=== PATIENT | male | born 1995 | race Caucasian/White ===

== ENCOUNTER 2017-02-12 11:50 | Emergency (ER) | payer BC, OTHER ==
[~2017-02-12] VITALS: Ht 170.2 cm; Wt 97.0 kg
[~2017-02-12 11:50] MED LIST: AMOX-351 PO; NO DAILY MEDS
--- OUTSIDE RECORDS SUMMARY | 2017-02-12 11:53 | XMS REPORT | Continuity of Care Document ---
Author Author [facility] Organization [facility] Address Unknown Phone Unavailable Support Name Relationship Address Phone DANIEL GREEN MD Caregiver [address] [place] [address] [place] [address] Unavailable SARAH RIOS Next Of Kin [address] [place] [address] [place] [address] Insurance Providers Guarantor Daniel Rios Address [address] [place] [address] [place] [address] Email DENIED Payer [facility] Policy Number [id number] Subscriber's Name Daniel Rios Relationship 18 Self Group Number [id number] Advance Directives Directive Response Recorded Date/Time Advanced Directives Type None 04/25/16 10:05pm Chief Complaint and Reason for Visit Chief Complaint Nausea,Vomiting,Diarrhea Reason for Visit Viral gastroenteritis Problems Active Problems Medical Problem Onset Date Status Acute sinusitis Unknown Acute Acute sinusitis Unknown Acute LEFT KNEE PAIN Unknown Acute Urticaria of unknown origin Unknown Acute Urticaria of unknown origin Unknown Acute Past Problems Medical Problem Onset Date Viral gastroenteritis Unknown Medications Current Home Medications Medication Dose Units Route Directions Days Qty Instructions Start Date No Daily Meds 04/25/16 Prochlorperazine Maleate (Compazine) 10 Mg Tablet 10 Mg Oral Four Times Daily 30 Tablet 04/25/16 Past Home Medications Medication Directions Ordered Status Allergy Pill , 09/07/09 Discontinued Aspirin (Baby Aspirin) 81 Mg Tab.chew, 81 Mg Oral Daily 04/20/10 Discontinued Decongestant , 09/07/09 Discontinued Fluticasone Propionate (Flonase) 16 Gm [place].susp, 16 Gm Nasal As Needed 10/07 Discontinued Loratadine (Claritin) 10 Mg Tablet, 10 Mg Oral Bedtime 04/19/10 Discontinued None , 04/23/13 Discontinued Sulfamethoxazole/Trimethoprim (Bactrim Ds) 1 Tab Tablet, 1 Tab Oral Twice A Day 07/31/10 Discontinued Social History Social History Problem Response Recorded Date/Time Onset Date Status Chewing Tobacco Status No 04/23/2013 12:10pm Not Applicable Not Applicable Hx Substance Use No 04/25/2016 10:15pm Not Applicable Not Applicable Hx Alcohol Use Y SOCAIL 04/25/2016 10:15pm Not Applicable Not Applicable Has the pt used tobacco in the last 12 months No 04/23/2013 12:10pm Not Applicable Not Applicable Tobacco Usage smoke 09/13/2014 4:28pm Not Applicable Not Applicable Query Response Start Date Stop Date Smoking Status Current some day smoker Hospital Discharge Instructions No hospital discharge instructions. Plan of Care Discharge Date 04/25/16 11:06pm Disposition 01 DISCHARGED HOME, SELF-CARE Condition at Discharge Improved Instructions/Education Provided DI for Viral Gastroenteritis -- Adult Prescriptions See Medication Section Additional Instructions/Education Compazine 10mg four times daily as needed for nausea or abdominal pain. Imodium at home 1-2 tabs up to 4 times daily as needed for watery stools Drink LOTS of fluids to keep up with diarrhea. Return to ER or see your doctor if not improved in two days or if worse. Care Plan and Goals Physician Care Plan Problem: Viral Gastroenteriritis Goal: Follow up with primary care provider Instructions: Take medications and follow care plan as discussed/written Compazine 10mg four times daily as needed for nausea or abdominal pain. Imodium at home 1-2 tabs up to 4 times daily as needed for watery stools Drink LOTS of fluids to keep up with diarrhea. Return to ER or see your doctor if not improved in two days or if worse. Functional Status No functional status results. Allergies, Adverse Reactions, Alerts Allergen Type Severity Reaction Status Last Updated Grape. Allergy Intermediate hives Active 04/25/16 pseudoephedrine HCl Allergy Unknown Active 04/25/16 Guaifenesin Allergy Unknown Active 04/25/16 Immunizations Query Response on File Recorded Date/Time Hx Influenza Vaccination Y fall 201101/29/15 8:44am Hx Pneumococcal Vaccination No 01/29/15 8:44am Hx Tetanus, Diptheria, Pertussis N/A SKIN INTACT 01/29/15 8:44am Hx Influenza Vaccination Y fall 201101/29/15 8:44am Hx Tetanus, Diptheria, Pertussis N/A SKIN INTACT 01/29/15 8:44am Influenza Vaccine Hx NONE 04/25/16 10:15pm Vital Signs Acute Vital Signs Vital Response Date/Time Temperature (Fahrenheit) 97.3 deg F (96.8 - 99.1) 04/25/2016 11:00pm Temperature (Calculated Celsius) 36.12187 degrees C (36.0 - 37.3) 04/25/2016 11:00pm Pulse Rate (adult) 92 bpm (60 - 100) 04/25/2016 11:00pm Respiratory Rate 15 breaths/min (10 - 20) 04/25/2016 11:00pm O2 Sat by Pulse Oximetry 97 % (90 - 100) 04/25/2016 11:00pm Blood Pressure 148/86 mm Hg 04/25/2016 11:00pm Blood Pressure 148/86 mm Hg 04/25/2016 11:00pm Height (Feet) 5 feet 04/25/2016 9:48pm Height (Inches) 11.00 inches 04/25/2016 9:48pm Weight (Kilograms) 104.000 kg 04/25/2016 9:48pm Body Mass Index (BMI) 31.0 04/25/2016 9:48pm Results No known relevant diagnostic tests, laboratory data and/or discharge summary. Procedures No known history of procedures. Encounters Encounter Location Arrival/Admit Date Discharge/Depart Date Attending Provider Departed Emergency Room [facility] 04/25/16 9:38pm 04/25/16 11: 06pm DANIEL GREEN MD Recent Diagnosis
--- OUTSIDE RECORDS SUMMARY | 2017-02-12 11:54 | XMS REPORT | Continuity of Care Document ---
Author Author [facility] Organization [facility] Address Unknown Phone Unavailable Support Name Relationship Address Phone MARCH, ELIZABETH Cristina DO Caregiver [address] [place] [address] Unavailable SARAH MEZA Next Of Kin [address] [place] [address] [place] [address] Insurance Providers Guarantor Daniel Meza Address [address] [place] [place] [address] Email DENIED Payer [facility] Policy Number [id number] Subscriber's Name Daniel Meza Relationship 18 Self Group Number [id number] Payer Workers Compensation Subscriber's Name Daniel Meza Relationship 18 Self Chief Complaint and Reason for Visit Chief Complaint Skin Injury Reason for Visit Animal bite of thumb Problems Active Problems Medical Problem Onset Date Status Acute sinusitis Unknown Acute Acute sinusitis Unknown Acute Animal bite of thumb Unknown Acute LEFT KNEE PAIN Unknown Acute Urticaria of unknown origin Unknown Acute Urticaria of unknown origin Unknown Acute Past Problems Medical Problem Onset Date Viral gastroenteritis Unknown Medications Current Home Medications Medication Dose Units Route Directions Days Qty Instructions Start Date Amoxicillin/Potassium Clav (Augmentin 875-125 Tablet) 1 Each Tablet 1 Tab Oral Twice A Day 14 Tablet TAKE WITH MEALS 06/16/16 No Daily Meds 04/25/16 Past Home Medications Medication Directions Ordered Status Allergy Pill , 09/07/09 Discontinued Aspirin (Baby Aspirin) 81 Mg Tab.chew, 81 Mg Oral Daily 04/20/10 Discontinued Decongestant , 09/07/09 Discontinued Fluticasone Propionate (Flonase) 16 Gm [place].susp, 16 Gm Nasal As Needed 10/07 Discontinued Loratadine (Claritin) 10 Mg Tablet, 10 Mg Oral Bedtime 04/19/10 Discontinued None , 04/23/13 Discontinued Sulfamethoxazole/Trimethoprim (Bactrim Ds) 1 Tab Tablet, 1 Tab Oral Twice A Day 07/31/10 Discontinued Social History Social History Problem Response Recorded Date/Time Onset Date Status Chewing Tobacco Status No 04/23/2013 12:10pm Not Applicable Not Applicable Hx Substance Use No 06/16/2016 12:52pm Not Applicable Not Applicable Hx Alcohol Use Y SOCAIL 06/16/2016 12:52pm Not Applicable Not Applicable Has the pt used tobacco in the last 12 months No 04/23/2013 12:10pm Not Applicable Not Applicable Tobacco Usage smoke 09/13/2014 4:28pm Not Applicable Not Applicable Query Response Start Date Stop Date Smoking Status Current every day smoker Hospital Discharge Instructions No hospital discharge instructions. Plan of Care Discharge Date 06/16/16 1:06pm Disposition 01 DISCHARGED HOME, SELF-CARE Condition at Discharge Stable Instructions/Education Provided DI for Animal Bites Prescriptions See Medication Section Additional Instructions/Education Clean the area daily with soap and water. Monitor for increased redness/swelling/tenderness. If any of these occur then please start the Augmentin. The mouse bite is listed as low risk and so we do not need to initiate rabies vaccination. Your tetanus status was updated today however. If any further issues/concerns then return to ER. Care Plan and Goals Physician Care Plan Problem:Mouse bite Goal: Follow up with primary care provider Instructions: Take medications and follow care plan as discussed/written Functional Status No functional status results. Allergies, Adverse Reactions, Alerts Allergen Type Severity Reaction Status Last Updated Grape. Allergy Intermediate hives Active 04/25/16 pseudoephedrine HCl Allergy Unknown Active 06/16/16 Guaifenesin Allergy Unknown Active 04/25/16 Immunizations Immunization Event Date Type Not Given Reason Dose Number Lot Number Video Tape Duplicator VIS Given Tdap 06/16/16 Administered 1 [id number] iConnectivity 01/20/15 Query Response on File Recorded Date/Time Hx Influenza Vaccination Y fall 201101/29/15 8:44am Hx Pneumococcal Vaccination No 01/29/15 8:44am Hx Tetanus, Diptheria, Pertussis N/A SKIN INTACT 01/29/15 8:44am Hx Influenza Vaccination Y fall 201101/29/15 8:44am Hx Tetanus, Diptheria, Pertussis N/A SKIN INTACT 01/29/15 8:44am Influenza Vaccine Hx NONE 06/16/16 12:52pm Tdap Vaccine Hx 06/16/16 06/16/16 12:51pm Vital Signs Acute Vital Signs Vital Response Date/Time Temperature (Fahrenheit) 98.6 deg F (96.8 - 99.1) 06/16/2016 1:06pm Temperature (Calculated Celsius) 37.26020 degrees C (36.0 - 37.3) 06/16/2016 1:06pm Pulse Rate (adult) 78 bpm (60 - 100) 06/16/2016 1:06pm Respiratory Rate 16 breaths/min (10 - 20) 06/16/2016 1:06pm O2 Sat by Pulse Oximetry 98 % (90 - 100) 06/16/2016 1:06pm Blood Pressure 115/55 mm Hg 06/16/2016 1:06pm Height (Feet) 5 feet 06/16/2016 12:00pm Height (Inches) 8.00 inches 06/16/2016 12:00pm Weight (Kilograms) 106.300 kg 06/16/2016 12:00pm Body Mass Index (BMI) 35.0 06/16/2016 12:00pm Results No known relevant diagnostic tests, laboratory data and/or discharge summary. Procedures Procedure Status Date Provider(s) EMERGENCY DEPT VISIT Completed 04/25/16 Encounters Encounter Location Arrival/Admit Date Discharge/Depart Date Attending Provider Departed Emergency Room [facility] 06/16/16 11:55am 06/16/16 1: 06pm ELIZABETH CHAVEZ DO Departed Emergency Room [facility] 04/25/16 9:38pm 04/25/16 11: 06pm DANIEL GREEN MD Recent Diagnosis
--- OUTSIDE RECORDS SUMMARY | 2017-02-12 11:54 | XMS REPORT | Continuity of Care Document ---
Author Author [facility] Organization [facility] Address Unknown Phone Unavailable Support Name Relationship Address Phone NURYS ARRINGTON MD Caregiver [address] [place] [address] [place] [address] SARAH MEZA Next Of Kin [address] [place] [address] [place] [id number] Insurance Providers Payer Name Policy Number Subscriber Name Relationship Self Pay Daniel Meza 18 Self Problems Medical Problems Problem Onset Date Status LEFT KNEE PAIN Unknown Active Acute sinusitis Unknown Active Acute sinusitis Unknown Active Urticaria of unknown origin Unknown Active Urticaria of unknown origin Unknown Active Medications Medication Dose Route Sig Days/Qty Instructions Order Date Discontinued Date Status [Allergy Pill] 09/07/09 07/29/10 Discontinued [Decongestant] 09/07/09 01/26/10 Discontinued Loratadine 10 Mg PO BEDTIME 04/19/10 07/29/10 Discontinued Aspirin 81 Mg PO DAILY 2 Qty 04/20/10 07/29/10 Discontinued Sulfamethoxazole/Trimethoprim 1 Tab PO TWICE A DAY 07/31/10 Discontinued Fluticasone Propionate 16 Gm NS NEEDED 10/07/11 06/05/12 Discontinued [None] 04/23/13 08/02/13 Discontinued Mometasone Furoate TOP NEEDED 01/29/15 Active Social History Social History Problem Response Recorded Date/Time Chewing Tobacco Status No 04/23/2013 12:10pm Hx Substance Use No 01/29/2015 8:44am Hx Alcohol Use No 01/29/2015 8:44am Has the pt used tobacco in the last 12 months No 04/23/2013 12:10pm Tobacco Usage smoke 09/13/2014 4:28pm Query Response Start Date Stop Date Smoking Status Current every day smoker Hospital Discharge Instructions No hospital discharge instructions. Plan of Care No plan of care. Functional Status Query Response Date Recorded Physical Hygiene Self January 29, 2015 8:44am Disabilities Visual January 29, 2015 8:44am Devices Used Glasses January 29, 2015 8:44am Dressing Self January 29, 2015 8:44am Ambulation Self January 29, 2015 8:44am Diet Self January 29, 2015 8:44am Mental Status Alert January 29, 2015 8:44am Disabilities Visual January 29, 2015 8:44am Devices Used Glasses January 29, 2015 8:44am Physical Hygiene Self January 29, 2015 8:44am Dressing Self January 29, 2015 8:44am Ambulation Self January 29, 2015 8:44am Diet Self January 29, 2015 8:44am Allergies, Adverse Reactions, Alerts Allergen Type Severity Reaction Status Last Updated Grape. Allergy Intermediate hives Active 01/29/15 pseudoephedrine HCl Allergy Unknown Active 01/29/15 Guaifenesin Allergy Unknown Active 01/29/15 Immunizations Name Given Type Hx Influenza Vaccination Y FALL 2011 Historical Hx Pneumococcal Vaccination No Historical Hx Tetanus, Diptheria, Pertussis N/A SKIN INTACT Historical Hx Influenza Vaccination Y FALL 2011 Historical Hx Tetanus, Diptheria, Pertussis N/A SKIN INTACT Historical Vital Signs Acute Vital Signs Vital Response Date/Time Temperature (Fahrenheit) 98.4 deg F (96.8 - 99.1) Temperature (Calculated Celsius) 36.40227 degrees C (36.0 - 37.3) Pulse Rate (adult) 90 bpm (60 - 100) Respiratory Rate 18 breaths/min (10 - 20) O2 Sat by Pulse Oximetry 99 % (90 - 100) Blood Pressure 126/84 mm Hg Height 5 ft 8 in Weight 244 lb Body Mass Index 37.0 kg/m^2 Results Test Source Date Result Interp. Ref. Range Comments Alanine Aminotransferase (ALT/SGPT) December 12, 2012 7:42pm 42 U/L N 21- 72 Albumin December 12, 2012 7:42pm 4.7 G/DL N 3.5-5.0 Albumin/Globulin Ratio December 12, 2012 7:42pm 1.4 RATIO N 1.1-2.2 Alkaline Phosphatase December 12, 2012 7:42pm 92 U/L N 70-260 Amylase Level December 12, 2012 7:42pm 80 U/L N 30-110 Anion Gap June 06, 2014 7:41pm 12 MEQ/L N 5-15 Aspartate Amino Transf (AST/SGOT) December 12, 2012 7:42pm 48 U/L N 17- 59 BUN/Creatinine Ratio June 06, 2014 7:41pm 11 RATIO N 6-26 Basophils # (Auto) June 06, 2014 7:41pm 0.0 T/MM3 N 0-0.2 Basophils (%) (Auto) June 06, 2014 7:41pm 0.3 % N 0-2 Blood Urea Nitrogen June 06, 2014 7:41pm 10.0 MG/DL N 9-20 Bordetella pertussis DNA (PCR) October 04, 2012 11:22am Sent out - Calcium Level June 06, 2014 7:41pm 8.8 MG/DL N 8.4-10.2 Calculated Osmolality June 06, 2014 7:41pm 273 MOSM/KG N 261-280 Carbon Dioxide Level June 06, 2014 7:41pm 29 MEQ/L N 22-30 Chloride Level June 06, 2014 7:41pm 102 MEQ/L N 98-107 Creatinine June 06, 2014 7:41pm 0.9 MG/DL N 0.8-1.5 Eosinophils # (Auto) June 06, 2014 7:41pm 0.3 T/MM3 N 0-0.5 Eosinophils (%) (Auto) June 06, 2014 7:41pm 2.8 % N 0-4 Globulin December 12, 2012 7:42pm 3.4 G/DL N 2.4-3.6 Glucose Level June 06, 2014 7:41pm 76 MG/DL N 75-110 Group A Streptococcus Screen April 08, 2013 6:45pm Negative - Strep culture confirmation to follow Hematocrit June 06, 2014 7:41pm 47.4 % N 41-53 Hemoglobin June 06, 2014 7:41pm 15.8 GM/DL N 13.5-17.5 Influenza Type A Antigen September 13, 2014 4:15pm Negative - Negative for Flu A protein antigen. Assay sensitivity is90%. Influenza Type B Antigen September 13, 2014 4:15pm Negative - Negative for Flu B protein antigen. Assay sensitivity is90%. Lipase December 12, 2012 7:42pm 41 U/L N 23-300 Lymphocytes # (Auto) June 06, 2014 7:41pm 1.6 T/MM3 N 1-4.8 Lymphocytes (%) (Auto) June 06, 2014 7:41pm 14.9 % L 23-45 Mean Corpuscular Hemoglobin June 06, 2014 7:41pm 30.1 UUG N 26-34 Mean Corpuscular Hemoglobin Concent June 06, 2014 7:41pm 33.3 GM/DL N 31 -37 Mean Corpuscular Volume June 06, 2014 7:41pm 90.3 UM3 N 80-100 Mean Platelet Volume June 06, 2014 7:41pm 10.3 UM3 N 9.4-12.4 Monocytes # (Auto) June 06, 2014 7:41pm 0.9 T/MM3 H 0-0.8 Monocytes (%) (Auto) June 06, 2014 7:41pm 7.8 % N 0-9.0 Neutrophils # (Auto) June 06, 2014 7:41pm 8.2 T/MM3 H 1.8-7.7 Neutrophils (%) (Auto) June 06, 2014 7:41pm 74.0 % H 33-66 Platelet Count June 06, 2014 7:41pm 180 T/MM3 N 130-400 Potassium Level June 06, 2014 7:41pm 4.0 MEQ/L N 3.6-5 RDW Standard Deviation June 06, 2014 7:41pm 41.5 FL N 36.9-50.2 Red Blood Count June 06, 2014 7:41pm 5.25 M/MM3 N 4.50-5.90 Sodium Level June 06, 2014 7:41pm 143 MEQ/L N 134-144 Total Bilirubin December 12, 2012 7:42pm 0.80 MG/DL N 0.20-1.30 Total Protein December 12, 2012 7:42pm 8.1 G/DL N 6.3-8.2 Urine Bilirubin December 12, 2012 7:18pm Negative - Has specimen been collected/obtained? Y Urine Blood December 12, 2012 7:18pm Negative - Has specimen been collected/obtained? Y Urine Collection Type December 12, 2012 7:18pm Voided - Has specimen been collected/obtained? Y Urine Color December 12, 2012 7:18pm Dk yellow - Has specimen been collected/obtained? Y Urine Glucose (UA) December 12, 2012 7:18pm Negative - Has specimen been collected/obtained? Y Urine Ketones December 12, 2012 7:18pm Negative - Has specimen been collected/obtained? Y Urine Leukocyte Esterase December 12, 2012 7:18pm Negative - Has specimen been collected/obtained? Y Urine Nitrite December 12, 2012 7:18pm Negative - Has specimen been collected/obtained? Y Urine Protein December 12, 2012 7:18pm Negative - Has specimen been collected/obtained? Y Urine Specific [place] December 12, 2012 7:18pm 1.020 - Has specimen been collected/obtained? Y Urine Turbidity December 12, 2012 7:18pm Clear - Has specimen been collected/obtained? Y Urine Urobilinogen December 12, 2012 7:18pm Normal EU/DL - Has specimen been collected/obtained? Y Urine pH December 12, 2012 7:18pm 6.5 - Has specimen been collected/ obtained? Y White Blood Count June 06, 2014 7:41pm 11.0 T/MM3 N 4.5-11.0 Chemistry Specimen Hemolysis June 06, 2014 7:41pm 16 N 0-25 0-25: No Hemolysis.26-70: Slight Hemolysis - can falsely elevate K and Urine Protein. 71-285: Moderate Hemolysis - can falsely elevate K, Troponin I, CA 19-9, PTH, CSF GLucose, and Urine Protein, and can falsely decrease Phenytoin. 286-999: Gross Hemolysis - can falsely elevate K, Troponin I, CA 19-9, PTH, CSF Glucose, and Urine Protine, and can falsely decrease Phenytoin. Recommend specimen recollection. Urinalysis Comment December 12, 2012 7:18pm Microscopic not ind. - Has specimen been collected/obtained? Y Lab Scanned Report June 09, 2014 9:34am LAB TEST FORM REQUEST [id number] - Turbidity June 06, 2014 7:41pm 30 H 0-20 0-21: Turbidity not present.22 -999: Turbidity present - Gross turbidity can falsely decrease Lipase and Triglycerides. Glomerular Filtration Rate Calc June 06, 2014 7:41pm 109 - Immature Granulocyte # (Auto) June 06, 2014 7:41pm 0.02 T/MM3 N 0.00- 0.03 Immature Granulocyte % (Auto) June 06, 2014 7:41pm 0.2 % N 0.0-0.5 Icterus Index June 06, 2014 7:41pm < 2 0-7 Group A Streptococcus Culture Throat June 06, 2014 12:00am Procedures No known history of procedures. Encounters Encounter Location Date/Time Departed Emergency Room 01/29/15 8:39am Recent Diagnosis
[2017-02-12 11:55] VITALS: Ht 170.2 cm; Wt 97.0 kg
--- NOTE | 2017-02-12 12:21 | ERPDOC ---
Departure Disposition Decision Date: Feb 12, 2017 Disposition Decision Time: 13:14 (MARLA HOPE APRN) Disposition: 01 DISCHARGED HOME, SELF-CARE Impression Impression (MARLA HOPE APRN) Impression: Primary Impression: Viral illness Severity: Moderate (MARLA HOPE APRN) Condition: Stable Seen By: Mid-level only (MARLA HOPE APRN) Patient Instructions: Viral Syndrome (ED) Problems/Meds/Labs Reviewed?: Yes Medications reviewed and manag: Yes (MARLA HOPE APRN) Additional Instructions: I do want you to try some over the counter medication to see if this will help with your symptoms. Your influenza and strep swabs today were negative. I do recommend something like Claritin or a different cough or cold medication without the guaifenesin. If this is not improving overall then please follow up with your primary care provider. Follow up care ordered?: Yes Mental Status: Alert (MARLA HOPE APRN) HPI General Chief Complaint: Throat Pain/Injury Stated Complaint: SORE THROAT,EAR PAIN, CONGESTION Time Seen by Provider: 11:57 Source: patient Exam Limitations: no limitations (MARLA HOPE APRN) Time Seen by Provider: 11:57 (JOSE SERRANO MD) HPI Dental Initial Comments He has had a sore throat and nasal congestion for the last 5 days. He has not had a fever or chills but has been fatigued. Has had a slight cough. Has been taking OTC medications as needed but is not really improving overall. Has not seen his PCP for this. Occurred At: home Onset: Gradual Duration: other (Over the last 4 days) Severity: moderate Location: L pharynx, R pharynx Associated Symptoms: cough, rhinorrhea, sinus drainage, DENIES: cheek swelling , dental trauma, diarrhea, drooling, dyspnea, facial swelling, fever, fractured tooth, gum laceration, gum swelling, headache, high pitched cry/voice, hoarseness, impacted tooth, loose tooth, nausea, retained foreign body, sinus pain, trouble chewing, trouble swallowing, vomiting (MARLA HOPE CLINICAL EXERCISE SPECIALIST) Allergies: Coded Allergies: Grape. (Verified Allergy, Intermediate, hives, 02/12/17) guaifenesin (Verified Allergy, Unknown, 02/12/17) pseudoephedrine HCl (Verified Allergy, Unknown, 02/12/17) Past History Past Medical History ENMT: sinusitis GI: other Integumentary: eczema (NOLD,MARLA N CLINICAL EXERCISE SPECIALIST) Surgical History General: other, tonsils Joint: knee (NOLD,MARLA N CLINICAL EXERCISE SPECIALIST) Vaccines Hx Influenza Vaccination: Yes (FALL 2011) Hx Pneumococcal Vaccination: No (NOLD,MARLA N CLINICAL EXERCISE SPECIALIST) Social History Smoking Status: Never smoker Substance Use Type: does not use Alcohol Intake: none (NOLD,MARLA N CLINICAL EXERCISE SPECIALIST) Review of Systems Constitutional Constitutional: fatigue, weakness, DENIES: chills, dizziness, fever (NOLD, MARLA N CLINICAL EXERCISE SPECIALIST) Eyes Vision: DENIES: blurring, double vision (NOLD,MARLA N CLINICAL EXERCISE SPECIALIST) ENMT Ears: pain (bilateral ears), DENIES: drainage Sinuses: rhinorrhea, DENIES: congestion Mouth/Throat: sore throat, DENIES: change in voice, drooling, hoarsness, painful swallowing, scratchy throat (NOLD,MARLA N CLINICAL EXERCISE SPECIALIST) Cardiovascular Cardiac: DENIES: chest pain, orthopnea Rhythm/Rate: DENIES: irregular beat, palpitations (NOLD,MARLA N CLINICAL EXERCISE SPECIALIST) Pulmonary Respiratory: cough, DENIES: dyspnea, sputum, tachypnea (NOLD,MARLA N CLINICAL EXERCISE SPECIALIST) GI Upper Abdomen: DENIES: nausea, pain, vomiting Lower Abdomen: DENIES: constipation, diarrhea, pain (NOLD,MARLA N CLINICAL EXERCISE SPECIALIST) Integumentary Skin: DENIES: rash (NOLD,MARLA N CLINICAL EXERCISE SPECIALIST) Neurological General: DENIES: headache, numbness, tingling, weakness (NOLD,MARLA N CLINICAL EXERCISE SPECIALIST) Exam General General Nourishment: well nourished, well developed, appears stated age, no acute distress, adult General Body Habitus: well groomed Vital Signs: RN Vital Signs have been reviewed: Yes Height (Feet): 5 Height (Inches): 8.00 (NOLD,MARLA N CLINICAL EXERCISE SPECIALIST) [employer] Dental Face: NOT FOUND: bruising, erythema, swelling, tender Jaw: NOT FOUND: asymmetry, trismus Gums: moist, pink, NOT FOUND: exudate, swelling Pharynx: NOT FOUND: cobblestoning, erythema, exudate, lateral pillar signs, swelling, uvular deviation Neck: NOT FOUND: L anterior adenopathy, L posterior adenopathy, R anterior adenopathy, R posterior adenopathy Skin: NOT FOUND: rash (MARLA HOPE APRN) Neurologic RN Documented GCS Eye Opening: Verbal: Motor: Total: (MARLA HOPE APRN) Differential Diagnoses Considering: Pharyngitis Strep, Sinusitis, Other (Viral illness, influenza) (MARLA HOPE APRN) Progress Results/Orders Orders Procedure Category Date Status Time Influenza A/B Screen LAB 02/12/17 Complete 12:18 Strep A Antigen Screen LAB 02/12/17 Complete 12:18 Group A Strep Culture ESME 02/12/17 In Process 12:51 (JOSE SERRANO MD) Lab Results Laboratory Tests Test 02/12/17 12:33 Influenza Type A Antigen Negative Influenza Type B Antigen Negative Group A Streptococcus Screen Negative (JOSE SERRANO MD) Progress Progress Rapid strep and influenza today are both negative. Will have him try some OTC medications for supportive care and follow up with his PCP. This could always be more of an allergic rhinitis so did recommend Flonase and an antihistamine (MARLA HOPE APRN) MARLA HOPE APRN Feb 12, 2017 12:21 JOSE SERRANO MD Feb 13, 2017 10:23
[2017-02-12] MEDS ORDERED: PROT480P PO (12:30)
[2017-02-12] MEDS ORDERED: CREA100P6 PO (12:30)
[2017-02-12] MEDS ORDERED: CARB15DR12 EACH EAR (12:30)
[2017-02-12] MEDS ORDERED: PSEU120T80 PO (12:30)
--- OUTSIDE RECORDS SUMMARY | 2017-02-12 12:46 | XMS REPORT | Continuity of Care Document ---
Author Author [facility] Organization [facility] Address Unknown Phone Unavailable Support Name Relationship Address Phone NURYS ARRINGTON MD Caregiver [address] [place] [address] [place] [address] SARAH MEZA Next Of Kin [address] [place] [address] [place] [address] Insurance Providers Payer Name Policy Number [...] F (96.8 - 99.1) Temperature (Calculated Celsius) [phone] degrees C (36.0 - 37.3) Pulse Rate [...] Has specimen been collected/obtained? Y Urine Specific [place] December 12, 2012 7:18pm 1.020 - Has [...] 09, 2014 9:34am LAB TEST FORM REQUEST [id number] - Turbidity June 06, 2014 7:41pm 30 [...] Encounters Encounter Location Date/Time Departed Emergency Room [facility] 01/29/15 8:39am Recent Diagnosis
--- NOTE | 2017-02-12 12:56 | NUR ---
REPORT TO AZUCENA MADDOX
[2017-02-12 13:05] LABS: INFLUENZA A AG SCREEN NEGATIVE (NEGATIVE); INFLUENZA B AG SCREEN NEGATIVE (NEGATIVE)
[2017-02-12 13:20] VITALS: BP 120/60; PULSE 63; RESP 16; TEMP 97.8; O2SAT 95
== END 2017-02-12 13:20 | disposition home or self-care (01) ==
LOC: ED 11:50
DX: B34.9 Viral infection, unspecified (principal)
CPT/HCPCS: 87081; 87400; 87430